=== PATIENT | female | born 1950 | race Two or more races ===

== ENCOUNTER 2024-04-28 17:35 | Emergency (ER) | payer OTHER ==
[~2024-04-28] VITALS: Ht 160 cm; Wt 78.9 kg
[2024-04-28] MEDS ORDERED: METFORMIN HCL500 M2 PO (17:44)
[2024-04-28] MEDS ORDERED: GLIMEPIRIDE2 MG PO (17:44)
[2024-04-28] MEDS ORDERED: ATACAND32 MG (17:48)
[2024-04-28] MEDS ORDERED: ZESTRIL5 MG (17:48)
[2024-04-28] MEDS ORDERED: COREG CR10 MG (17:48)
[2024-04-28] MEDS ORDERED: CHILDREN'S ASPI81 MG (17:48)
[2024-04-28] MEDS ORDERED: SYNTHROID88 MCG (17:48)
[2024-04-28] MEDS ORDERED: CANDESARTAN CILE8 MG (17:49)
[2024-04-28] MEDS ORDERED: FAMOTIDINE/PF 20 MG/2 ML VIAL ONE (18:10)
[2024-04-28] MEDS ORDERED: LACTOBACILLUS ACIDOPHILUS 1 CAP CAP PO ONE ×2 (18:10→18:15)
[2024-04-28] MEDS ORDERED: 0.9 % SODIUM CHLORIDE 500 ML IV ONE (18:15)
[2024-04-28] MEDS ORDERED: FAMOTIDINE/PF 20 MG/2 ML VIAL IV ONE (18:15)
[2024-04-28 18:39] LABS: PH,URINE 7.5 (5.0-8.0); URINE APPEARANCE Cloudy; URINE BILIRRUBIN Negative (NEGATIVE); URINE BLOOD Negative; URINE COLOR Dark Yellow; URINE GLUCOSE Negative (NEGATIVE); URINE KETONE 15 (NEGATIVE); URINE LEUKOCYTE Trace; URINE NITRATE Negative
[2024-04-28 18:42] LABS: HEMATOCRIT 34.1 % (36.0-45.00); HEMOGLOBIN 11.1 g/dL (12.0-15.00); MEAN CELL VOLUME 74.9 fL (80.00-100.00); MEAN CORPUSCULAR HEMOGLOBIN 24.4 pg (27.00-32.0); MEAN CORPUSCULAR HGB CONC 32.6 g/dl (32.0-36.0); PLATELET COUNT 366 K/uL (150-450); RED BLOOD COUNT 4.56 M/uL (4.00-6.00); RED CELL DISTRIBUTION WIDTH 15.8 % (11.5-14.5); URINE BACTERIA 1485.4 uL (0.0-1933); URINE CAST 2.28 uL (0.0-1.40); URINE EPITHELIAL CELLS 51.4 uL (0.0-38.8); URINE RBC 11.7 uL (0.0-20.8); URINE WBC 64.4 uL (0.0-23.2)
[2024-04-28 18:43] LABS: URINE PROTEIN 100 (NEGATIVE)
[2024-04-28 18:57] LABS: ALBUMIN 3.5 gm/dL (3.4-5.0); BILIRUBIN TOTAL 0.44 mg/dL (0.3-1.2); CALCIUM 9.4 mg/dL (8.5-10.1); CREATININE SERUM 0.81 mg/dL (0.55-1.02); GFR 68.75; GLOBULINA 3.5 G/DL (2.4-3.5); POTASSIUM 4.23 mEq/L (3.5-5.1)
[2024-04-28] MEDS ORDERED: INTESTINEX680 M1 PO (19:24)
[2024-04-28] MEDS ORDERED: PEPCID AC20 MG PO (19:24)
[2024-04-28] MEDS ORDERED: HYOSCYAMINE SULFATE 0.125 MG TAB.SUBL ONE (19:44)
[2024-04-28] MEDS ORDERED: SUCRALFATE 1 G TABLET PO ONE (19:45)
[2024-04-28] MEDS ORDERED: HYOSCYAMINE SULFATE 0.125 MG TAB.SUBL SL ONE (19:45)
== END 2024-04-28 19:53 ==
LOC: ER 17:35
PROVIDERS: Nurse Practitioner Family
DX: R55 Syncope and collapse (principal); R10.84 Generalized abdominal pain; E86.0 Dehydration; E11.9 Type 2 diabetes mellitus without complications; Z79.84 Long term (current) use of oral hypoglycemic drugs; I10 Essential (primary) hypertension; E03.9 Hypothyroidism, unspecified
CPT/HCPCS: 36415; 70450; 74176; 93005; 96365; 99284; J3490